=== PATIENT | female | born 1955 | race Caucasian/White ===

== ENCOUNTER 2016-12-30 09:55 | Emergency (ER) | payer OTHER ==
[~2016-12-30] VITALS: Ht 157.5 cm; Wt 122.5 kg
[2016-12-30 10:01] VITALS: BP 136/70
--- NOTE | 2016-12-30 10:08 | NUR ---
Note undone in EDM - 12/30/16 at 1033 by [email or web address] 1F [facility] C/O RIGHT WRIST PAIN S/P FALL 1 HR PRIOR TO ER TODAY; PT STATES NO LOC AT TIME OF FALL. HX: DM, HTN, HYPERLIPIDEMIA. DENIES N/V/D; SKIN IS PINK/WARM/DRY; AAOX4 WITH EVEN AND STEADY GAIT; LUNGS CLEAR BL; HR EVEN AND REGULAR; PATIENT STATES PAIN OF 10/10 AT THIS TIME; PATIENT POSITIONED FOR COMFORT; HOB ELEVATED; BEDRAILS UP X2; BED DOWN. ER MD MADE AWARE OF PT STATUS.
--- NOTE | 2016-12-30 10:08 | NUR ---
PT AMB TO BED5
--- NOTE | 2016-12-30 10:08 | NUR ---
61F [facility] FAMILY C/O RIGHT WRIST PAIN S/P FALL 1 HR PRIOR TO ER TODAY; PT STATES NO LOC AT TIME OF FALL. HX: DM, HTN, HYPERLIPIDEMIA. DENIES N/V/D; SKIN IS PINK/WARM/DRY; AAOX4 WITH EVEN AND STEADY GAIT; LUNGS CLEAR BL; HR EVEN AND REGULAR; PATIENT STATES PAIN OF 10/10 AT THIS TIME; PATIENT POSITIONED FOR COMFORT; HOB ELEVATED; BEDRAILS UP X2; BED DOWN. ER MD MADE AWARE OF PT STATUS. Addendum: 12/30/16 at 1100 by [email or web address] BRUISE TO RIGHT 2ND TOE. Addendum: 12/30/16 at 1102 by [email or web address] PT STS DON'T WANT PAIN MED AT THIS TIME.
--- NOTE | 2016-12-30 10:32 | NUR ---
PT TAKEN TO [facility]AY VIA W/C ACCOMPANIED BY [employer].
--- NOTE | 2016-12-30 10:44 | NUR ---
BACK FROM X RAY.ER MD DR RECIO EVALUATING PT AT BEDSIDE.
--- NOTE | 2016-12-30 11:02 | NUR ---
PT STS PAIN 11/10.& STATES: DON'T WANT PAIN MED AT THIS TIME.
--- NOTE | 2016-12-30 11:10 | NUR ---
Patient appears to be resting comfortably in bed. Vital Signs within normal limits. Respirations even and unlabored.WILL CONTINUE TO MONITOR.
--- NOTE | 2016-12-30 11:17 | NUR ---
ER MD DR RECIO REEVALUATING PT AT BEDSIDE.
--- NOTE | 2016-12-30 11:27 | NUR ---
Armond bernstein in ED - [facility]16 [facility] BY NICOL CEVALLOS. PT TOLERATED PROCEDURE WELL.
--- NOTE | 2016-12-30 11:27 | NUR ---
SPLINT RIGHT WRIST DONE & GIVEN INSTRUCTIONS BY NICOL CEVALLOS. PT TOLERATED PROCEDURE WELL.
[2016-12-30 11:37] VITALS: BP 139/79
== END 2016-12-30 11:35 | disposition home or self-care (01) ==
LOC: MED 09:55
DX: S52.511A Displaced fracture of right radial styloid process, initial encounter for closed fracture (principal); S52.611A Displaced fracture of right ulna styloid process, initial encounter for closed fracture; E11.9 Type 2 diabetes mellitus without complications; I10 Essential (primary) hypertension; E78.5 Hyperlipidemia, unspecified; W18.39XA Other fall on same level, initial encounter; Y93.89 Activity, other specified; Y92.89 Other specified places as the place of occurrence of the external cause; Y99.8 Other external cause status
CPT/HCPCS: 73110; 82948; 99284

== ENCOUNTER 2018-05-08 12:30 | Emergency (ER) | payer OTHER ==
[~2018-05-08] VITALS: Ht 165.1 cm; Wt 117.9 kg
[2018-05-08 12:33] VITALS: BP 137/71
--- NOTE | 2018-05-08 12:41 | NUR ---
PT BIBA TO BED 7
--- NOTE | 2018-05-08 12:50 | NUR ---
PT C/O R ANKLE PAIN S/P MECHANICAL FALL AT [facility], SLIPPED ON WET SIDEWALK. NO OTHER COMPLAINTS. CMS INTACT. 12/10 PAIN. DENIES N/V/D; SKIN IS PINK/WARM/DRY; AAOX4; LUNGS CLEAR BL; HR EVEN AND REGULAR; PT DENIES ANY FEVER, CP, SOB, OR COUGH AT THIS TIME; VSS; PATIENT POSITIONED FOR COMFORT; HOB ELEVATED; BEDRAILS UP X2; BED DOWN. ER MD MADE AWARE OF PT STATUS.
[2018-05-08] MEDS ORDERED: MORPHINE SULFATE 4 MG/ML SYR IVP ONE (14:30)
[2018-05-08] MEDS ORDERED: PROPOFOL 200 MG/20 ML VIAL IV ONE (14:30)
--- NOTE | 2018-05-08 14:52 | NUR ---
SOFTWARE DESIGNER CALLED TO BEDSIDE FOR CONSCIOUS SEDATION PLACED PATIENT ON ETCO2 MONITORING ALONG WITH SUPPLEMENTAL OXYGEN AT 3 LPM VIA NC SATURATIO 97% HR 81 RR 16 ETCO2 32-33 BREATH SOUNDS DECREASED BILATERAL GOOD CHEST RISE
--- NOTE | 2018-05-08 14:54 | NUR ---
SATURATION 93% ON SUPPLEMENTAL OXYGEN AT 3 LPM VIA NC ETC02 18
--- NOTE | 2018-05-08 14:55 | NUR ---
STARTED CLOSED REDUCTION OF RIGHT ANKLE, TIMEOUT DONE,PT SIGNED CONSENT. MD, CHARGE NURSE, PRIMARY NURSE,RT, AND EMT PRESENT TO BEDSIDE.
--- NOTE | 2018-05-08 14:56 | NUR ---
SATURATION 96% ON SUPPLEMENTAL OXYGEN AT 3 LPM VIA NC ETCO2 36 GOOD CHEST RISE
--- NOTE | 2018-05-08 15:00 | NUR ---
SATURATION 97% ON SUPPLEMENTAL OXYGEN AT 3 LPM VIA NC HR 75 ETC02 25
--- NOTE | 2018-05-08 15:02 | NUR ---
X-RAY TECH AT BEDSIDE.
--- NOTE | 2018-05-08 15:08 | NUR ---
SATURATION 100% ON SUPPLEMENTAL OXYGEN AT 3 LPM VIA NC HR 73 ETCO2 37 GOOD CHEST RISE TITRATED FIO2 TO 2 LPM ROS/RN NOTIFIED
--- NOTE | 2018-05-08 16:20 | NUR ---
Patient discharged with v/s stable. Written and verbal after care instructions given and explained. Patient alert, oriented and verbalized understanding of instructions. Wheel Chair Assisted with to car. All questions addressed prior to discharge. ID band removed. Patient advised to follow up with PMD. Rx of motrin, Zofran and [place] given. Patient educated on indication of medication including possible reaction and side effects. Opportunity to ask questions provided and answered.
[2018-05-08] MEDS ORDERED: DIAZEPAM 5 MG TAB PO ONE (16:35)
[2018-05-08 16:44] VITALS: BP 132/88
== END 2018-05-08 16:20 | disposition home or self-care (01) ==
LOC: MED 12:30
DX: S82.61XA Displaced fracture of lateral malleolus of right fibula, initial encounter for closed fracture (principal); E11.9 Type 2 diabetes mellitus without complications; I10 Essential (primary) hypertension; Z90.89 Acquired absence of other organs; W18.30XA Fall on same level, unspecified, initial encounter; Y93.89 Activity, other specified; Y92.89 Other specified places as the place of occurrence of the external cause; Y99.8 Other external cause status
CPT/HCPCS: 27840; 73562; 73600; 73610; 96374; 99285; J2270; J2704; Q0092